=== PATIENT | female | born 1945 | race Caucasian/White ===

== ENCOUNTER 2019-01-01 10:04 | Emergency (ER) | payer MEDICARE, BC ==
[2019-01-01 11:50] VITALS: BP 155/86
--- NOTE | 2019-01-01 12:28 | UC ---
Throat Pain/Nasal Zeke HPI - HPI Summary HPI Summary: Pt c/o gradual onset of nasal congestion, sinus pressure an dpain X 2 weeks. - History of Current Complaint Chief Complaint: UCRespiratory Stated Complaint: SINUS CONCERN Time Seen by Provider: 01/01/19 12:21 Hx Obtained From: Patient ?: No Onset/Duration: Gradual Onset, Lasting Weeks, Still Present Severity: Moderate Pain Intensity: 0 Cough: None Associated Signs & Symptoms: Positive: Sinus Discomfort - Epiglottits Risk Factors Epiglottis Risk Factors: Negative - Allergies/Home Medications Allergies/Adverse Reactions: Allergies Allergy/AdvReac Type Severity Reaction Status Date / Time Penicillins Allergy Rash Verified 01/01/19 11:34 Home Medications: Home Medications Cholecalciferol TAB* [Vitamin D TAB*] 0 unit PO DAILY 01/01/19 [History Confirmed 01/01/19] Esomeprazole Magnesium [Nexium] 40 mg PO QAM 01/01/19 [History Confirmed ] FLUoxetine CAP* [Prozac CAP*] 30 mg PO BEDTIME 01/01/19 [History Confirmed 01/01] Hydrochlorothiazide TAB* [Hydrodiuril TAB*] 12.5 mg PO DAILY 01/01/19 [History Confirmed 01/01/19] Meloxicam [Mobic] 15 mg PO QAM 01/01/19 [History Confirmed 01/01/19] Mirabegron [Myrbetriq] 25 mg PO QPM 01/01/19 [History Confirmed 01/01/19] Multivitamin [Multivitamins] 1 each PO DAILY 01/01/19 [History Confirmed ] Simvastatin 80 mg PO QPM 01/01/19 [History Confirmed 01/01/19] PMH/Surg Hx/FS Hx/Imm Hx Previously Healthy: Yes Cardiovascular History: Cardiac Disease, Hypertension - Surgical History Surgical History: Yes Surgery Procedure, Year, and Place: 1999 hysterectomy - Family History Known Family History: Positive: Cardiac Disease - Social History Occupation: Retired Lives: With Family Alcohol Use: Occasionally Substance Use Type: Excessive Caffeine Smoking Status (MU): Former Smoker Have You Smoked in the Last Year: No Review of Systems All Other Systems Reviewed And Are Negative: Yes Constitutional: Positive: Negative Skin: Positive: Negative Eyes: Positive: Negative ENT: Positive: Sinus Congestion, Sinus Pain/Tenderness Respiratory: Positive: Cough Cardiovascular: Positive: Negative Gastrointestinal: Positive: Negative Genitourinary: Positive: Negative Motor: Positive: Negative Neurovascular: Positive: Negative Musculoskeletal: Positive: Negative Neurological: Positive: Negative Psychological: Positive: Negative Is Patient Immunocompromised?: No Physical Exam Triage Information Reviewed: Yes Appearance: Pain Distress Vital Signs: Initial Vital Signs Temp 98.1 F 01/01/19 11:42 Pulse 88 01/01/19 11:42 Resp 18 01/01/19 11:42 BP 155/86 01/01/19 11:42 Pulse Ox 96 01/01/19 11:42 Vital Signs Reviewed: Yes Eye Exam: Normal ENT: Positive: Nasal congestion, Sinus tenderness Dental Exam: Normal Neck exam: Normal Respiratory Exam: Normal Cardiovascular Exam: Normal Musculoskeletal Exam: Normal Neurological Exam: Normal Psychological Exam: Normal Skin Exam: Normal Throat Pain/Nasal Course/Dx - Differential Dx/Diagnosis Differential Diagnosis/HQI/PQRI: Otitis Media, Sinusitis Provider Diagnosis: Sinusitis Discharge - Sign-Out/Discharge Documenting (check all that apply): Patient Departure All imaging exams completed and their final reports reviewed: No Studies - Discharge Plan Condition: Stable Disposition: HOME Prescriptions: DOXYcycline CAP(*) [DOXYcycline 100MG CAP(*)] 100 mg PO Q12H #20 cap Patient Education Materials: Sinusitis (ED) Referrals: Wilson Vasquez DO [Primary Care Provider] - If Needed - Billing Disposition and Condition Condition: STABLE Disposition: Home - Attestation Statements Provider Attestation: I was available for consult. This patient was seen by the LUCIA. The patient was not presented to, seen by, or examined by me. EK
== END 2019-01-01 12:38 | disposition home or self-care (01) ==
LOC: UCCORT 10:04
DX: J32.9 Chronic sinusitis, unspecified (principal); I10 Essential (primary) hypertension; Z88.0 Allergy status to penicillin; Z87.891 Personal history of nicotine dependence
CPT/HCPCS: 99212; G0463

== ENCOUNTER 2019-04-23 18:43 | Emergency (ER) | payer MEDICARE, BC ==
--- OUTSIDE RECORDS SUMMARY | 2019-04-23 18:50 | XMS REPORT | Continuity of Care Document ---
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 Onset: 06/21/2018 Retention of urine Emma Sanchez M.D. Onset: 01/12/2018 Bladder muscle dysfunction - overactive Emma Sanchez M.D. 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 Nexium 1 tablet qday Unknown 40mg Packet Simvastatin 1 po qd 90tabs Unknown Tablets Hydrochlorothiazide 1 by mouth every Unknown 12.5mg day Tablets Fluoxetine HCL 1 by mouth every Unknown 30mg Capsules day Vagifem 1 tab per vagina Unknown 10mcg Tablets twice a week Meclizine HCL 1-2 tabs by Unknown 12.5mg Tablets mouth every 4 hours as needed dizziness Multi-Vitamin 1 by mouth every Unknown Tablets day Vitamin D-3 1 by mouth every Unknown 1000Unit Capsules day Myrbetriq 1 by mouth every 90tabs Daniel, 50mg Tablets ER 24HR day Andrés Carter History Medications Ciprofloxacin HCL 1 by mouth 1 x 1tabs Emma Sanchez, 06/21/2018 - 500mg dose M.D. 06/22/2018 Tablets Uribel 1 tab by mouth up 40caps Emma Sanchez, 06/01/2018 - 118mg Capsules to four times a M.D. 06/21/2018 day Uribel 1 tab by mouth 40caps Emma Sanchez, 06/01/2018 - 118mg Capsules daily as needed M.D. 06/01/2018 for bladder discomfort. Yahaira Yahaira Uribel 1 tab by mouth up 40caps Emma Sanchez, 05/28/2018 - 118mg Capsules to four times a M.D. 08/09/2018 day yahaira Myrbetriq 1 by mouth every 30tabs Emma Sanchez, 05/28/2018 - 50mg Tablets ER day M.D. 07/09/2018 24HR Oxycodone/Acetaminophen 1 po q 4 hrs prn 30tabs Jose Forde 2012 - nathaly Mendez MD, FACS 01/03/2015 5-325mg Tablets Enablex 1 by mouth every 90tabs Emma Sanchez, - 15mg Tablets ER day M.D. 08/09/2018 24HR Meloxicam 1 po q day c food 30tabs Unknown - Tablets 04/07/2014 Prozac 1 po qd Unknown - 10mg Capsules 01/04/2015 Boniva 1 by mouth qmonth Unknown - 150mg Tablets 02/05/2015 Calcium 500+D Unknown - Tablets 07/14/2017 Calcium 600 1 by mouth every Unknown - 600mg Tablets day 01/12/2018 Naproxen Fabian Ortizley - 500mg Tablets PA 06/08/2018 Medications Administered in Office Medication SIG Qnty Indications Ordering Provider Date Methylprednisolone acetate Sabrina Hankins, 03/22/2018 (Depomedrol) 80mg injection RPAC Injection Vital Signs Date Vital Result Comment 04/06/2019 1:43pm BP Systolic Sitting Right Arm 162 mmHg BP Diastolic Sitting Right Arm 71 mmHg Body Temperature 97.2 F Heart Rate 80 /min Height 66 inches 5'6" Weight 176.25 lb BMI (Body Mass Index) 28.4 kg/m2 BSA (Body Surface Area) 1.90 m2 [place] body weight in kilograms 59 kg O2 % BldC Oximetry 93 % Pain Level 1 10/01/2018 10:25am BP Systolic 111 mmHg BP Diastolic 83 mmHg Body Temperature 97.8 F Heart Rate 98 /min Respiratory Rate 16 /min Height 66 inches 5'6" Weight 173.50 lb BMI (Body Mass Index) 28.0 kg/m2 BSA (Body Surface Area) 1.88 m2 [place] body weight in kilograms 59 kg O2 % BldC Oximetry 96 % Pain Level 0 08/09/2018 2:35pm BP Systolic 154 mmHg BP Diastolic 69 mmHg Body Temperature 97.6 F Heart Rate 89 /min Respiratory Rate 16 /min Height 66 inches 5'6" Weight 174.38 lb BMI (Body Mass Index) 28.1 kg/m2 BSA (Body Surface Area) 1.89 m2 [place] body weight in kilograms 59 kg O2 % BldC Oximetry 96 % Pain Level 0 07/22/2018 10:48am BP Systolic 156 mmHg BP Diastolic 78 mmHg Body Temperature 98.1 F Heart Rate 98 /min Respiratory Rate 16 /min Height 66 inches 5'6" [place] body weight in kilograms 59 kg O2 % BldC Oximetry 96 % Pain Level 0 07/12/2018 11:14am BP Systolic 174 mmHg BP Diastolic 95 mmHg Heart Rate 73 /min Respiratory Rate 16 /min O2 % BldC Oximetry 95 % 07/12/2018 10:36am BP Systolic 183 mmHg Pti n pain BP Diastolic 91 mmHg Pti n pain Body Temperature 97.8 F Heart Rate 85 /min Respiratory Rate 16 /min Height 66 inches 5'6" verbal [place] body weight in kilograms 59 kg O2 % BldC Oximetry 98 % Pain Level 3 Perineal/groin area 07/09/2018 8:31am BP Systolic 163 mmHg BP Diastolic 97 mmHg Body Temperature 98.7 F Heart Rate 96 /min Respiratory Rate 18 /min Height 66 inches 5'6" verbal Weight 176.00 lb BMI (Body Mass Index) 28.4 kg/m2 BSA (Body Surface Area) 1.89 m2 [place] body weight in kilograms 59 kg O2 % BldC Oximetry 94 % Pain Level 0 06/21/2018 1:44pm BP Systolic 150 mmHg BP Diastolic 80 mmHg Body Temperature 98.4 F Heart Rate 91 /min Respiratory Rate 18 /min Height 66 inches 5'6" verbal Weight 176.00 lb BMI (Body Mass Index) 28.4 kg/m2 BSA (Body Surface Area) 1.89 m2 [place] body weight in kilograms 59 kg O2 % BldC Oximetry 94 % Pain Level 1 06/08/2018 9:38am BP Systolic 147 mmHg BP Diastolic 94 mmHg Body Temperature 98.8 F Heart Rate 98 /min Respiratory Rate 14 /min Height 66 inches 5'6" verbal Weight 176.00 lb BMI (Body Mass Index) 28.4 kg/m2 BSA (Body Surface Area) 1.89 m2 [place] body weight in kilograms 59 kg O2 % BldC Oximetry 96 % Pain Level 1 achey sensation like bladder full all the time 05/28/2018 10:27am BP Systolic 177 mmHg BP Diastolic 94 mmHg Body Temperature 99.2 F Heart Rate 103 /min Respiratory Rate 16 /min Height 66 inches 5'6" verbal Weight 175.00 lb BMI (Body Mass Index) 28.2 kg/m2 BSA (Body Surface Area) 1.89 m2 [place] body weight in kilograms 59 kg O2 % BldC Oximetry 95 % Pain Level 1 aCHE In Bladder 03/22/2018 1:31pm BP Systolic Sitting Left Arm 171 mmHg BP Diastolic Sitting Left Arm 90 mmHg Body Temperature 97.5 F Heart Rate 81 /min Respiratory Rate 18 /min Height 66 inches 5'6" verbal Weight 165.00 lb BMI (Body Mass Index) 26.6 kg/m2 BSA (Body Surface Area) 1.84 m2 [place] body weight in kilograms 59 kg O2 % BldC Oximetry 95 % 01/12/2018 8:50am BP Systolic 168 mmHg re ck 156/83 BP Diastolic 96 mmHg re ck 156/83 Body Temperature 98.6 F Heart Rate 93 /min Respiratory Rate 14 /min Height 66 inches 5'6" Weight 177.38 lb BMI (Body Mass Index) 28.6 kg/m2 BSA (Body Surface Area) 1.90 m2 [place] body weight in kilograms 59 kg O2 % BldC Oximetry 95 % Pain Level 0 07/14/2017 9:16am BP Systolic 143 mmHg BP Diastolic 80 mmHg Body Temperature 97.8 F 36.5 C Heart Rate 97 /min Respiratory Rate 16 /min Height 66 inches 5'6" Weight 170.00 lb BMI (Body Mass Index) 27.4 kg/m2 BSA (Body Surface Area) 1.87 m2 [place] body weight in kilograms 59 kg O2 % BldC Oximetry 94 % Pain Level 0 02/05/2015 9:13am Heart Rate 92 /min Height 65 inches 5'5" Weight 173.00 lb BMI (Body Mass Index) 28.8 kg/m2 BSA (Body Surface Area) 1.86 m2 01/04/2015 11:27am BP Systolic Sitting Right Arm 132 mmHg BP Diastolic Sitting Right Arm 92 mmHg Height 66 inches 5'6" Weight 175.00 lb BMI (Body Mass Index) 28.2 kg/m2 BSA (Body Surface Area) 1.89 m2 08/11/2013 11:36am BP Systolic Sitting Right Arm 124 mmHg BP Diastolic Sitting Right Arm 68 mmHg Height 66 inches 5'6" Weight 176.00 lb BMI (Body Mass Index) 28.4 kg/m2 BSA (Body Surface Area) 1.89 m2 02/11/2012 9:33am Height 65.5 inches 5'5.50" Weight 170.00 lb 08/06/2011 1:14pm Height 65 inches 5'5" Weight 173.00 lb 01/16/2011 1:34pm Height 66 inches 5'6" Weight 176.00 lb 02/27/2010 2:34pm Height 64.50 inches 5'4.50" Weight 176.00 lb 01/24/2009 11:20am Height 64.5 inches 5'4.50" Weight 172.00 lb 06/16/2008 10:26am Height 64.5 inches 5'4.50" Weight 170.00 lb 11/17/2007 10:09am Height 64.5 inches 5'4.50" Weight 168.00 lb Results Test Date Facility Test Result H/L Range Note Xray 04/06/2019 [facility] Orthopedic RMP, Knee, RT, < pending> [address] [facility] & [place] [address] sunrise (4 [phone] view) Urine Dipstick 07/12/2018 [facility] Ua Color Blue Yellow Ua Clarity Clear Clear Ua Leuko Negative Negative Ua Nitrite Negative Negative Ua Urobilinogen 3.5 umol/L High 0.2 - 1.0 E.U./dL Ua Protein Negative Negative Ua PH 6.0 Low 6.5-7.5 Ua Blood Negative Negative Ua Specific [place] 1.015 1.010-1.030 Ua Ketones Negative Negative Ua Bilirubin Negative Negative Ua Glucose Negative Negative Urine Dipstick 06/08/2018 [facility] Ua Color yellow Yellow Ua Clarity clear Clear Ua Leuko neg Negative Ua Nitrite neg Negative Ua Urobilinogen 3.5 High 0.2 - 1.0 E.U./dL Ua Protein 0.15 High Negative Ua PH 6.5 6.5-7.5 Ua Blood neg Negative Ua Specific [place] 1.020 1.010-1.030 Ua Ketones neg Negative Ua Bilirubin neg Negative Ua Glucose neg Negative Urine Culture 05/28/2018 [facility] Urine Culture URETHRAL RAFA [address] [place] [address] [phone] Quantity 10,000 - 50,000 <SEE NOTE> 2 Ua RFX Micro & Culture 07/15/2017 [facility] Urine Color YELLOW Yellow II [address] [place], [place] [id number] [phone] Urine Clarity CLEAR Clear Urine Glucose - Dipstick NEGATIVE mg/dL Negative Urine Bilirubin - Dipstick NEGATIVE Negative Urine Ketone NEGATIVE mg/dL Negative Urine Specific [place] 1.010 N 1.010-1.030 Urine Blood NEGATIVE Negative Urine PH 6.0 Low 6.5-7.5 Urine Protein - Dipstick NEGATIVE mg/dL Negative Urine Urobilinogen - Dipstick 0.2 E.U./dL N 0.2-1.0 Urine Nitrite - Dipstick NEGATIVE Negative Urine Leuk Esterase NEGATIVE Negative Source: URINE, CLEAN CAT <SEE NOTE> 3 Urine Culture 07/15/2017 [facility] Urine Culture MIXED URETHRAL F <SEE [address] NOTE> [place] [address] [phone] Quantity 10,000 - 50,000 <SEE NOTE> N 5 Laboratory test 05/15/2008 N2N/CCD Import Anti-Nuclear 25 AU/mL 0-99 6 finding Antibody(S) Rheumatoid Factor Screen Negative Negative Sedimentation Rate 8 mm/hr 0-30 1 N32.81 2 10,000 - 50,000 CFU/mL 3 URINE, CLEAN CATCH 4 MIXED URETHRAL RAFA 5 10,000 - 50,000 CFU/mL 6 Negative <100 Equivocal 100 - 120 Positive >120 Procedures Date Code Description Status 04/06/2019 01805 Radiology, Knee 3 Views Completed 10/01/2018 36659 Measurement Post Voiding Residual Urine By Completed Ultrasound,Non-Imaging 07/22/2018 38820 voiding pressure study vp marketing intra abdominal voiding pressure Completed ap 07/22/2018 34685 emg studies of urethral sphincter, other than needle, any Completed tech 07/22/2018 96873 complex uroflowmetry electronic Completed 07/22/2018 08186 Cystometrogram complex w/ voiding and urethral pressure Completed studies 07/22/2018 04016 Bladder Catheterization Completed 07/12/2018 84629 Measurement Post Voiding Residual Urine By Completed Ultrasound,Non-Imaging 07/12/2018 58611 Bladder Catheterization Completed 07/09/2018 62535 Pessary Insertion And Fitting Completed 07/09/2018 06717 Measurement Post Voiding Residual Urine By Completed Ultrasound,Non-Imaging 06/21/2018 39674 Measurement Post Voiding Residual Urine By Completed Ultrasound,Non-Imaging 06/21/2018 81301 Cystoscopy Completed 06/21/2018 69011 Pessary Insertion And Fitting Completed 06/08/2018 52693 Measurement Post Voiding Residual Urine By Completed Ultrasound,Non-Imaging 05/28/2018 94977 Measurement Post Voiding Residual Urine By Completed Ultrasound,Non-Imaging 03/22/2018 Asp./Injection major joint Completed 01/12/2018 98782 Measurement Post Voiding Residual Urine By Completed Ultrasound,Non-Imaging 07/14/2017 00329 Measurement Post Voiding Residual Urine By Completed Ultrasound,Non-Imaging 01/04/2015 58152 Radiology, Knee 3 Views Completed 01/04/2015 38355 Radiology, Knee 3 Views Completed 09/15/2013 70106 Radiology, Shoulder: Two Views (Sso) Completed 09/15/2013 28055 Radiology, Shoulder: Two Views (Sso) Completed 09/15/2013 87908 Radiology, Elbow Complete Completed 09/15/2013 24533 Radiology, Elbow Complete Completed 09/02/2013 23271 Radiology, Elbow Complete Completed 09/02/2013 03939 Radiology, Elbow Complete Completed 09/02/2013 58104 Radiology, Shoulder: Two Views (Sso) Completed 09/02/2013 51755 Radiology, Shoulder: Two Views (Sso) Completed 08/26/2013 76681 Radiology, Elbow Complete Completed 08/26/2013 32321 Radiology, Elbow Complete Completed 08/26/2013 92438 Radiology, Shoulder: Two Views (Sso) Completed 08/26/2013 47707 Radiology, Shoulder: Two Views (Sso) Completed 08/19/2013 37902 Radiology, Elbow Complete Completed 08/19/2013 90596 Radiology, Shoulder: Two Views (Sso) Completed 08/11/2013 14468 Humerus Fracture closed w/o manipulation Completed 08/11/2013 06972 Radial head/neck fx closed w/o manipulation Completed 08/25/2012 Asp./Injection major joint Completed 08/06/2011 Asp./Injection major joint Completed 04/04/2011 Asp./Injection major joint Completed 01/16/2011 Asp./Injection major joint Completed 08/23/2010 Asp/Injection small joint/bursa (ie-fingers,toes) Completed 02/27/2010 Asp./Injection major joint Completed 05/23/2009 Asp./Injection major joint Completed 01/24/2009 Aspiration/Injection joint Completed intermediate(wrist/ankle/elbow/olbursa 10/23/2008 Asp/Injection small joint/bursa (ie-fingers,toes) Completed 05/15/2008 Aspiration/Injection joint Completed intermediate(wrist/ankle/elbow/olbursa 05/15/2008 66919 Asp/Injection small joint/bursa (ie-fingers,toes) Completed 11/17/2007 Asp/Injection small joint/bursa (ie-fingers,toes) Completed Encounters Type Date Location Provider Dx Diagnosis Office Visit 04/06/2019 Orthopaedic Office Sabrina Hankins M25.561 Pain in right 1:45p S., [facility] knee M17.11 Unilateral primary osteoarthritis, right knee Office Visit 10/01/2018 10:15a Urology Emma Sanchez, N32.81 Overactive bladder M.D. Office Visit 08/09/2018 2:45p Urology Emma Sanchez N32.81 Overactive bladder M.D. Office Visit 07/12/2018 10:30a Urology Emma Sanchez, R33.8 Other retention of M.D. urine Office Visit 07/09/2018 8:30a Urology Emma Sanchez N32.81 Overactive bladder M.D. N81.11 Cystocele, midline Office Visit 06/21/2018 1:45p Urology Emma Sanchez N32.81 Overactive bladder M.D. R33.8 Other retention of urine N81.11 Cystocele, midline Office Visit 06/08/2018 9:15a Urology Emma Sanchez N32.81 Overactive bladder M.D. R33.8 Other retention of urine Office Visit 05/28/2018 10:30a UrologRoxann Mike2.81 Overactive Bang CarterDLopez bladder Office Visit 03/22/2018 1:15p Orthopaedic Nhi M25.562 Pain in left Office Sabrina Narayan, knee [facility] M17.12 Unilateral primary osteoarthritis, left knee Office Visit 01/12/2018 8:45a Urology Emma Sanchez N32.81 Overactive bladder M.D. R33.8 Other retention of urine Office Visit 07/14/2017 Urology Roxann Sanchez2.81 Overactive bladder 9:15a Andrés Carter Office Visit 03/19/2015 Orthopaedic Rigo Tai, 717.2 Derangement 9:45a Office M.D. Posterior Horn Medial Meniscus Office Visit 02/08/2015 Orthopaedic Rigo Tai, 717.2 Derangement 1:15p Office M.D. Posterior Horn Medial Meniscus Office Visit 02/05/2015 Orthopaedic Rigo Tai, 715.96 Osteoarthrosis 9:00a Office M.D. Unspec Genlzd Or Localzd Lower Leg 717.2 Derangement Posterior Horn Medial Meniscus Office Visit 01/04/2015 Orthopaedic Sky, 715.96 Osteoarthrosis 11:15a Office MD Sowmya Unspec Genlzd Or Localzd Lower Leg 715.16 Osteoarthrosis Localized Prim Lower Leg Plan of Treatment Future Appointment(s):09/27/2019 10:15 am - Emma Sanchez M.D. at [id number] - Sabrina Hankins, RPACM25.561 Pain in right kneeM17.11 Unilateral primary osteoarthritis, right kneeAllComments:She has moderate to advanced arthritis at the medial joint line and patellofemoral compartment. I suggested she continue with the Meloxicam and ice. It is likely to give her trouble from time to timegiven the nature of the arthritis. Ice, rest, Tylenol and Meloxicam will be her first line of treatment. If it fails to settle down with these measures and injection would be appropriate.
[2019-04-23 19:01] VITALS: BP 153/69
[2019-04-23] MEDS ORDERED: Dexamethasone TAB* 4 MG PO ONE (19:52)
--- NOTE | 2019-04-23 19:52 | UC ---
UC General HPI - HPI Summary HPI Summary: pt had a cough earlier in the week and now has a sore throat making it painful to swallow. she was exposed to strep throat. no fever, cp or sob. - History of Current Complaint Chief Complaint: UCGeneralIllness Stated Complaint: SORE THROAT AND COUGH Time Seen by Provider: 04/23/19 19:37 Hx Obtained From: Patient Onset/Duration: Gradual Onset Timing: Constant Pain Intensity: 3 - Allergy/Home Medications Allergies/Adverse Reactions: Allergies Allergy/AdvReac Type Severity Reaction Status Date / Time Penicillins Allergy Rash Verified 04/23/19 19:05 PMH/Surg Hx/FS Hx/Imm Hx Endocrine History: Dyslipidemia Cardiovascular History: Hypertension GI/ History: Gastroesophageal Reflux Psychological History: Depression - Surgical History Surgical History: Yes Surgery Procedure, Year, and Place: 1999 hysterectomy - Family History Known Family History: Positive: Cardiac Disease - Social History Alcohol Use: Rare Substance Use Type: Excessive Caffeine Smoking Status (MU): Former Smoker Type: Cigarettes Have You Smoked in the Last Year: No Review of Systems All Other Systems Reviewed And Are Negative: No Constitutional: Negative: Fever, Chills ENT: Positive: Sore Throat. Negative: Ear Ache, Sinus Congestion Respiratory: Negative: Shortness Of Breath, Cough Cardiovascular: Negative: Palpitations, Chest Pain Physical Exam Triage Information Reviewed: Yes Appearance: Well-Appearing Vital Signs: Initial Vital Signs Temp 98 F 04/23/19 18:54 Pulse 94 04/23/19 18:54 Resp 16 04/23/19 18:54 BP 153/69 04/23/19 18:54 Pulse Ox 97 04/23/19 18:54 Vital Signs Reviewed: Yes Eyes: Positive: Conjunctiva Clear ENT: Positive: Pharyngeal erythema, TMs normal, Uvula midline - but red and mildly swollen.. Negative: Nasal congestion, Nasal drainage, Trismus, Muffled voice, Hoarse voice Neck: Positive: Supple, Tenderness @ - peritonsilar nodes, Enlarged Nodes @ - peritonsialr Respiratory: Positive: No respiratory distress Musculoskeletal: Positive: ROM Intact Neurological: Positive: Alert Psychological: Positive: Age Appropriate Behavior Skin Exam: Normal Skin: Negative: Rashes Diagnostics - Laboratory Lab Results: rapid strep=neg. Course/Dx - Differential Dx - Multi-Symptom Differential Diagnoses: Other - no concern for peritonsilar abscess. no airway compromise. will tx for rpesumptive bacterial infective due to the uvulitis and strep exposure. - Diagnoses Provider Diagnosis: Uvulitis Discharge - Sign-Out/Discharge Documenting (check all that apply): Patient Departure All imaging exams completed and their final reports reviewed: No Studies - Discharge Plan Condition: Stable Disposition: HOME Prescriptions: Cefdinir cap* [Cefdinir 300 MG cap (NF)] 300 mg PO BID 5 Days #10 cap Patient Education Materials: Uvulitis (ED) Referrals: Wilson Vasquez DO [Primary Care Provider] - 5 Days Additional Instructions: GO TO THE ER FOR ANY WORSENING. TAKE THE CEFDINIR LIQUID, 6ML TWICE DAILY FOR 5 DAYS THEN TAKE THE PRESCRIPTION CAPSULES DIRECTED FOR 5 DAYS. - Billing Disposition and Condition Condition: STABLE Disposition: Home
[2019-04-23] MEDS ORDERED: Cefdinir 250mg/5 ml* 100 ml ORAL.SUSP PO ONE (20:01)
== END 2019-04-23 20:38 | disposition home or self-care (01) ==
LOC: UCCORT 18:43
DX: K12.2 Cellulitis and abscess of mouth (principal); I10 Essential (primary) hypertension; Z88.0 Allergy status to penicillin; Z87.891 Personal history of nicotine dependence
CPT/HCPCS: 87651; 99213; G0463; J8540